=== PATIENT | male | born 1995 | race Caucasian/White ===

== ENCOUNTER 2018-09-08 12:06 | Emergency (ER) | payer MEDICAID, SELFPAY ==
[2018-09-08 12:11] VITALS: BP 135/77; PULSE 71; RESP 14; TEMP 36.7; O2SAT 100; BMI 33.3
[2018-09-08 12:41] LABS: Absolute Lymphocyte Count 1.55 X10^3/ul (0.83-4.51); Absolute Neutrophil Count 11.3 X10^3/uL (2.0-7.7); Basophil# 0.04 X10^3/uL; Basophil% 0.3 % (0-1); Eosinophil# 0.23 X10^3/uL; Eosinophils% 1.7 % (0-5); Hematocrit 46.5 % (40-54); Hemoglobin 16.2 g/dl (13.0-16.5); Lymphocyte # 1.55 X10^3/ul (4.0); Lymphocyte % 11.2 % (19-41); Mean Corp Hgb Conc 34.8 g/gl (32-36); Mean Corpuscular Volume 89.1 fL (80-94); Mean Platelet Vol. 9.9 fl (6.2-12.0); Monocyte% 5.1 % (0-10); Neutrophil # 11.27 X10^3/uL (2.7-7.7); Neutrophil % 81.4 % (47-70); POSITIVE COUNT NO; POSITIVE DIFFERENTIAL NO; POSITIVE MORPHOLOGY NO; Platelet Count 330 K/mm3 (150-450); RBC Distribution Width CV 12.1 % (11.6-14.6); RBC Distribution Width SD 39.4 fl (35.1-43.9); Red Blood Count 5.22 M/mm3 (4.6-6.2); White Blood Count 13.8 K/mm3 (4.4-11.0)
[2018-09-08 12:51] LABS: Anion Gap 9 (5-15); BUN 14 mg/dL (7-18); BUN/Creat Ratio 13.3 RATIO (10-20); Calcium,Total 8.8 mg/dL (8.5-10.1); Chloride 108 mmol/L (98-107); Creatinine, Serum 1.05 mg/dL (0.70-1.30); EST Glomerular Filtration Rate 91 mL/min (>60); Est Glom Filt Rate - Afr Amer 110 mL/min (>60); Estimated Creatinine Clearance 107.55 ml/min; Glucose 94 mg/dL (74-106); Potassium 3.8 mmol/L (3.5-5.1); Sodium Level 137 mmol/L (136-145)
[2018-09-08 12:59] LABS: Alcohol, Blood (Medical)-Serum < 3.0 mg/dL
--- NOTE | 2018-09-08 13:01 | CM.ED ---
SOCIAL WORK NOTE PATIENT PRESENTS WITH SUICIDAL IDEATION. DISCUSSED CASE WITH DR. GALINDO. CRISIS TO EVALUATE FOR INPATIENT PSYCH NEED. PER DR. GALINDO, PATIENT WITH SUICIDAL IDEATION AND PLAN TO HARM SELF. GILMER SNOWDEN, ENTRY ENGINEER, CHOIR LEADER.
[2018-09-08 13:21] VITALS: PULSE 76; RESP 18; O2SAT 99
--- NOTE | 2018-09-08 13:23 | NURSING ---
CALLED CRISIS, TALKED TO JOSEPHINE. SHE WILL LET RAYRAY KNOW ABOUT PATIENT
[2018-09-08 13:28] LABS: Amphetamine Urine VISTA POSITIVE (<1000 ng/mL); Barbiturate Urine VISTA NEGATIVE (< 200 ng/mL); Benzodiazepine Urine VISTA NEGATIVE (< 200 ng/mL); Cocaine Urine VISTA NEGATIVE (< 300 ng/mL); Ecstacy Urine VISTA NEGATIVE (< 500 ng/mL); Methadone Urine VISTA NEGATIVE (< 300 ng/mL); PCP Urine VISTA NEGATIVE (< 25 ng/mL); THC Urine VISTA POSITIVE (< 50 ng/mL); Vista UDS pH Range 5
--- NOTE | 2018-09-08 13:33 | NURSING ---
RAYRAY, CRISIS, HERE
--- NOTE | 2018-09-08 14:23 | ED.VISSUMM ---
- ER Visit Summary Date of Service: 09/08/18 Chief Complaint: Suicidal ideation, depression History of Present Illness: The patient is a 23 M who feels suicidal and feels depressed as well. He states that today he could not take it anymore. He thought about cutting himself or taking pills. He says that he stays at home and does not do anything which makes him depressed and feels like his friends are deserting him. He has cut himself before. He has never been hospitalized previously for any psychiatric issues. He takes no medications at home. He does see a counselor and states that he has asked for more help but the counselor has not given him any more help. Physical Examination: Vital signs reviewed. HEENT exam unremarkable. Heart is regular rate and rhythm without murmurs. Lungs are clear to auscultation. Abdomen is soft and nontender. Extremities reveal no edema. Skin exam normal. Neurologic exam normal. He has suicidal thoughts. He has a flat affect. Test Results: White blood cell count 13.8, chloride 108, bicarb 20. Alcohol normal. Tox screen with amphetamines and cannabinoids Emergency Department Course and Treatment: The patient was evaluated by crisis. His thoughts are vague and his plans are not very thought out. The patient states that he is able to keep himself safe at home. They were able to get him into intensive outpatient program on Tuesday. He will stay with his family throughout the weekend. He will follow-up on Tuesday Treatment Plan: [] Disposition: Discharge Impression: Suicidal ideation This note was generated with [employer] dictation software. It may contain incorrect words, spelling, and punctuation that were not noted in review of the chart prior to signing ED Disposition - Plan for ED Patient: Referrals: Care Physician,No Primary [Primary Care Provider] -
[2018-09-08 14:38] VITALS: PULSE 78; RESP 14; O2SAT 98
[2018-09-08 15:06] VITALS: RESP 16
--- NOTE | 2018-09-08 15:14 | ED.DEP ---
ED Disposition - Plan for ED Patient: Disposition: Home or Assisted Living Instructions: ED Depression Referrals: Care Physician,No Primary [Primary Care Provider] -
[2018-09-08 15:16] VITALS: BP 123/77; PULSE 67; RESP 16; O2SAT 99
== END 2018-09-08 15:21 | disposition home or self-care (01) ==
PROVIDERS: Emergency Provider Emergency Medicine
DX: R45.851 Suicidal ideations (principal); Z91.5 Personal history of self-harm; Z72.0 Tobacco use
CPT/HCPCS: 80048; 80307; 80320; 85025; 99283; G0480

== ENCOUNTER 2022-08-09 16:12 | Emergency (ER) | payer MEDICAID, SELFPAY ==
[2022-08-09 16:13] VITALS: BP 114/79; PULSE 74; RESP 26; TEMP 35.1; O2SAT 100; BMI 32.5
[2022-08-09 17:12] LABS: Absolute Lymphocyte Count 0.71 X10^3/uL (0.83-4.51); Absolute Neutrophil Count 16.1 X10^3/uL (2.0-7.7); Basophil# 0.04 X10^3/uL; Basophil% 0.2 % (0-1); Eosinophil# 0.03 X10^3/uL; Eosinophils% 0.2 % (0-5); Hematocrit 51.1 % (40-54); Lymphocyte # 0.71 X10^3/ul (0.83-4.51); Mean Corp Hgb Conc 35.2 g/dL (32-36); Mean Corpuscular Hgb 31.1 pg (27.0-32.0); Mean Corpuscular Volume 88.4 fL (80-94); Monocyte# 0.98 X10^3/uL; Monocyte% 5.5 % (0-10); NRBC Flagged by Analyzer 0 % (0-5); Neutrophil # 16.06 X10^3/uL (2.7-7.7); Neutrophil % 89.5 % (47-70); Platelet Count 313 K/mm3 (150-450); RBC Distribution Width CV 11.9 % (11.6-14.6); RBC Distribution Width SD 37.9 fl (35.1-43.9); Red Blood Count 5.78 M/mm3 (4.6-6.2); White Blood Count 17.9 K/mm3 (4.4-11.0)
[2022-08-09 17:31] LABS: Anion Gap 13 (5-15); BUN 17 mg/dL (7-18); BUN/Creat Ratio 11.8 RATIO (10-20); Calcium,Total 9.8 mg/dL (8.5-10.1); Chloride 105 mmol/L (98-107); Creatinine, Serum 1.44 mg/dL (0.70-1.30); EST Glomerular Filtration Rate 62 mL/min (>60); Est Glom Filt Rate - Afr Amer 74 mL/min (>60); Estimated Creatinine Clearance 75.69 ml/min; Glucose 111 mg/dL (74-106); Potassium 3.4 mmol/L (3.5-5.1); Sodium Level 137 mmol/L (136-145)
[2022-08-09 18:27] VITALS: BP 115/77; PULSE 63; RESP 18; O2SAT 99
--- NOTE | 2022-08-09 18:35 | ED.RN ---
pt has been accidentally taking full dose of carafate in tablet AND liquid form for approximately 1w.
--- NOTE | 2022-08-09 18:40 | ED.VIS.GI ---
HPI HPI - GI History of Present Illness Chief Complaint: Abd Pain Informant: patient and family Narrative Narrative: Patient here with father with pain across the mid abdomen to his back since noon today. He ate a burger for late breakfast. He states he was not left out. Vomiting diarrhea since too many to count. Denies bloody stools. Denies bloody emesis. Occasional alcohol however not significant. No history of pancreatitis. No abdominal surgeries. History of GERD on medications. Denies recent antibiotics. Subjective chills and sweats. No urinary symptoms. Father history of kidney stones. [facility] Medical History Acid reflux Uncontrolled hypertension Home Medications fluoxetine 10 mg capsule 30 mg PO DAILY 08/09/22 [History Last Taken Unknown] hyoscyamine sulfate 0.125 mg sublingual tablet (Levsin/SL) 0.125 mg PO TID PRN abdominal discomfort #10 tabs 08/09/22 [Rx Last Taken Unknown] omeprazole 20 mg capsule,delayed release 20 mg PO DAILY 08/09/22 [History Last Taken Unknown] ondansetron 4 mg disintegrating tablet 4 mg PO Q6H PRN nausea and vomiting #10 tabs 08/09/22 [Rx Last Taken Unknown] pantoprazole 20 mg tablet,delayed release 20 mg PO DAILY 08/09/22 [History Last Taken Unknown] sucralfate 1 gram tablet 2 g PO DAILY 08/09/22 [History Last Taken Unknown] Allergy/AdvReac Type Severity Reaction Status Date / Time Penicillins Allergy Rash Verified 08/09/22 16:13 Social History Smoking Status: Current every day smoker tobacco type: cigarettes ROS ROS ED Constitutional Constitutional ED: Reports chills and sweats; Denies fever(s) Eyes Eyes: Denies change in vision ENT ENT ED: Denies dysphagia or sore throat Cardiovascular Cardiovascular: Denies chest pain, leg edema, palpitations or racing heartbeat Respiratory/Chest Respiratory/Chest: Denies cough, dyspnea or dyspnea on exertion Gastrointestinal Gastrointestinal: Reports abdominal pain, diarrhea, nausea and vomiting Genitourinary Genitourinary ED: Denies dysuria, hematuria or urinary frequency Musculoskeletal Musculoskeletal: Denies back pain, extremity pain or neck pain Integumentary Denies rash or wounds Neurologic Neurologic: Denies headache(s), paresthesias or weakness EXAM Physical Exam Const Vital Signs: 08/09/22 16:13 08/09/22 18:27 08/09/22 19:36 Temperature 95.1 F L Temperature Source Temporal Pulse Rate 74 63 64 Respiratory Rate 26 H 18 Blood Pressure 114/79 115/77 107/60 Blood Pressure Mean 90 89 75 Pulse Ox 100 99 100 Oxygen Delivery Method Room Air Room Air Room Air 08/09/22 22:41 Temperature Temperature Source Pulse Rate 82 Respiratory Rate 18 Blood Pressure 121/72 H Blood Pressure Mean Pulse Ox 98 Oxygen Delivery Method Positive well nourished and well developed General Appearance ED: well developed and NAD HEENT Reports dry mucous membranes normocephalic and atraumatic Mouth ED: Yes dry mucous membranes Mouth: dry mucous membranes Eyes PERRL, EOMs intact bilaterally and conjunctivae normal General Eye ED: Yes normal appearance of both eyes Neck no lymphadenopathy and supple General: Negative for tenderness Chest Wall Chest: Negative for tenderness Resp normal respiratory effort and normal air movement Effort and Inspection: symmetric chest movement; Negative for respiratory distress Cardio regular rate, regular rhythm and no murmurs Peripheral Pulses: pulses 2+ throughout GI normal to inspection, nondistended, normoactive bowel sounds GI Narrative: Minimal mid abdominal tenderness there is no guarding or rebound negative Jerez's or McBurney's tenderness. Palpation: Negative for guarding or rebound tenderness present Back/Spine no CVA tenderness and no thoracic nor lumbar tenderness Extremity normal to inspection General Extremety ED: Negative for edema or tenderness General Extremity: Negative for edema Neuro oriented x3 and no sensory deficits noted Sensorium / Orientation: awake and alert Skin no rashes or lesions noted and no wounds MDM MDM MDM Narrative Medical decision making narrative: Patient acute vomiting and diarrhea reported abdominal pain. Nonsurgical abdomen on exam. Differential viral gastroenteritis, pancreatitis, colitis. He has no C. difficile risk factors. Clinical dehydration on exam. Also concern for electrolyte abnormalities with his symptoms. Laboratory studies obtained_white count of 17.9 hemoglobin 18. Creatinine 1.44 up from 1 previously. Potassium 3.4. Lipase and liver enzymes are normal. With leukocytosis and reported pain. Urine obtained noting 25 leukocytes and ketones. He denies urine symptoms or concerns for UTI. CT scan obtained abdomen pelvis was interpreted by myself and read by radiology with findings of enteritis. No obstructions or kidney stones. Patient clinically feeling much better on reexam is tolerating oral fluids. Patient on Levsin for cramping, continued soft abdomen on exam. Prescription for Levsin and Zofran sent to his pharmacy. Discussed his leukocytosis likely reactive to his acute vomiting. Return precautions. All questions answered. Lab Data Attestation: I reviewed the patient's lab results. Labs: Laboratory Results - last 24 hr 08/09/22 08/09/22 08/09/22 17:05 17:05 17:05 WBC 17.9 H RBC 5.78 Hgb 18.0 H* Hct 51.1 MCV 88.4 MCH 31.1 MCHC 35.2 RDW Std Deviation 37.9 RDW Coeff of Tal 11.9 Plt Count 313 MPV 10.0 Immature Gran % (Auto) 0.600 Neut % (Auto) 89.5 H Lymph % (Auto) 4.0 L Wells % (Auto) 5.5 Eos % (Auto) 0.2 Baso % (Auto) 0.2 Absolute Neuts (auto) 16.1 H Absolute Lymphs (auto) 0.71 L Nucleated RBC % 0 Sodium 137 Potassium 3.4 L Chloride 105 Carbon Dioxide 19.0 L Anion Gap 13 BUN 17 Creatinine 1.44 H Estim Creat Clear Calc 75.69 Est GFR (MDRD) Af Amer 74 Est GFR (MDRD) Non-Af 62 BUN/Creatinine Ratio 11.8 Glucose 111 H Calcium 9.8 Total Bilirubin 1.10 H Direct Bilirubin 0.21 AST 24 ALT 34 Alkaline Phosphatase 90 Total Protein 8.5 H Albumin 4.6 Globulin 3.9 Lipase 69 L Urine Color Urine Clarity Urine pH Ur Specific [place] Urine Protein Urine Glucose (UA) Urine Ketones Urine Occult Blood Urine Nitrite Urine Bilirubin Urine Urobilinogen Ur Leukocyte Esterase Urine RBC Urine WBC Ur Squamous Epith Cells Urine Bacteria Urine Mucus 08/09/22 19:28 WBC RBC Hgb Hct MCV MCH MCHC RDW Std Deviation RDW Coeff of Tal Plt Count MPV Immature Gran % (Auto) Neut % (Auto) Lymph % (Auto) Wells % (Auto) Eos % (Auto) Baso % (Auto) Absolute Neuts (auto) Absolute Lymphs (auto) Nucleated RBC % Sodium Potassium Chloride Carbon Dioxide Anion Gap BUN Creatinine Estim Creat Clear Calc Est GFR (MDRD) Af Amer Est GFR (MDRD) Non-Af BUN/Creatinine Ratio Glucose Calcium Total Bilirubin Direct Bilirubin AST ALT Alkaline Phosphatase Total Protein Albumin Globulin Lipase Urine Color Yellow Urine Clarity Clear Urine pH 7.0 Ur Specific [place] 1.005 Urine Protein 30 H Urine Glucose (UA) Normal Urine Ketones 150 A* Urine Occult Blood Negative Urine Nitrite Negative Urine Bilirubin 1 H Urine Urobilinogen Normal Ur Leukocyte Esterase 25 H Urine RBC 0 SEEN Urine WBC 0 SEEN Ur Squamous Epith Cells 0 SEEN Urine Bacteria 0 SEEN Urine Mucus 2+ Radiography Diagnostic Testing: Clinical Impression(s) from Imaging Studies Abdomen/Pelvis CT 08/09/22 20:15 IMPRESSION: Nonspecific bowel changes consistent with enteritis in diarrheal illness. No nephrolithiasis or evidence of obstructive uropathy. Electronically Signed: David Del Cid MD at 21:23 EST Reading Location ID and State: [address] [place] [address] Tel , Service support , Discharge Plan Triage Chief Complaint: Abd Pain ED Provider: Hossein Wright Dx/Rx/DC Orders Clinical Impression: Nausea vomiting and diarrhea, Abdominal pain, Flank pain, Acute renal insufficiency Instructions: Abdominal Pain, ED Renal Insufficiency, ED Vomiting and Diarrhea ... Prescriptions: New hyoscyamine sulfate [Levsin/SL] 0.125 mg tablet, sublingual 0.125 mg PO TID PRN (Reason: abdominal discomfort) Qty: 10 0RF ondansetron 4 mg tablet,disintegrating 4 mg PO Q6H PRN (Reason: nausea and vomiting) Qty: 10 0RF No Action sucralfate 1 gram Tablet 2 g PO DAILY pantoprazole 20 mg tablet,delayed release (DR/EC) 20 mg PO DAILY fluoxetine 10 mg capsule 30 mg PO DAILY omeprazole 20 mg capsule,delayed release(DR/EC) 20 mg PO DAILY Primary Care Provider: Opal Gomez NP Referrals: Opal Gomez NP, [facility] [Primary Care Provider] - 3-5 Days if not improving Activity Restrictions/Additional Instructions: Labs with creatinine of 1.44. CT scan abdomen pelvis noted enteritis findings. Consistent with your vomiting and diarrhea. Continue oral fluids at home. Take medications as prescribed as needed. Follow-up with your doctor. Disposition Disposition: Home, Self Care Discharge Date/Time: 08/09/22 22:46
[2022-08-09] MEDS: Morphine 4 MG/ML Syringe IV (18:50)
[2022-08-09] MEDS: Ondansetron 4 MG/2 ML Vial IV (18:50)
[2022-08-09 19:23] LABS: AST(SGOT) 24 U/L (15-37); Alanine Aminotransfer ALT/SGPT 34 U/L (16-61); Albumin, Serum 4.6 g/dL (3.2-5.0); Alkaline Phosphatase 90 U/L (45-117); Bilirubin, Direct 0.21 mg/dL (0.00-0.30); Globulin 3.9 g/dL (2.2-4.2); Lipase 69 U/L (73-393); Protein, Total 8.5 g/dL (6.4-8.2)
[2022-08-09 19:32] LABS: Bacteria 0 SEEN /hpf (None Seen); Red Blood Cells-Urine 0 SEEN /hpf (0-5); Squamous Epithelial Cells - UA 0 SEEN /hpf (0-5); White Blood Cells 0 SEEN /hpf (0-5)
[2022-08-09 19:36] VITALS: BP 107/60; PULSE 64; O2SAT 100
[2022-08-09 19:41] LABS: Color, Urine Yellow (Yellow); Glucose, Dipstick Normal (Normal); Leukocyte Esterase-Dipstick 25 /ul (Negative); Nitrite-Dipstick Negative (Negative); Occult Blood-Urine Negative /ul (Negative); Protein-Dipstick 30 mg/dl (Negative); Specific Gravity, Urine 1.005 (1.002-1.030); Urine Clarity Clear (Clear); Urine Urobilinogen Normal (Normal)
[2022-08-09 19:56] LABS: Urine Bilirubin Dipstick 1 mg/dL (Negative)
[2022-08-09 19:58] LABS: Ketone-Dipstick 150 mg/dl (Negative)
[2022-08-09 20:04] LABS: Mucous, Urine 2+ /hpf (<or=2+)
--- NOTE | 2022-08-09 20:15 | CT_ITS ---
INDICATION: flank pain EXAMINATION: CT ABDOMEN AND PELVIS WITHOUT CONTRAST - CT Abdomen And Pelvis W/O Contrast Injection TECHNIQUE: Helically acquired images were obtained of the abdomen and pelvis without oral or IV contrast. A radiation dose optimization technique was used for this scan. IV Contrast dosage and agent: None. Oral contrast: None. COMPARISON: None. FINDINGS: LOWER CHEST: Lung bases are clear. No cardiomegaly or pericardial effusion. LIVER: Homogeneous. No focal mass. GALLBLADDER AND BILIARY TREE: No calcified gallstones. No gallbladder distension or wall edema. No intra- or extrahepatic biliary ductal dilation. PANCREAS: No focal cystic or solid mass. SPLEEN: Normal size without focal cystic or solid mass. ADRENAL GLANDS: No nodules. KIDNEYS AND URETERS: No nephrolithiasis or hydronephrosis bilaterally. PERITONEUM: No ascites or free air. BOWEL: Normal appendix. No stomach or bowel distension. Increased large and small bowel fluid contents with fluid levels throughout the colon and in the rectum. LYMPH NODES: No enlarged mesenteric or retroperitoneal lymph nodes. VESSELS: Aorta is non-dilated. URINARY BLADDER: Unremarkable. REPRODUCTIVE ORGANS: No pelvic masses. ABDOMINAL WALL: Fat-containing umbilical hernia. BONES: No acute or aggressive abnormality. CT/Abdomen/Pelvis without Cont IMPRESSION: Nonspecific bowel changes consistent with enteritis in diarrheal illness. No nephrolithiasis or evidence of obstructive uropathy. Electronically Signed: David Del Cid MD at 21:23 [facility] ,
[2022-08-09] MEDS: Hyoscyamine Sulfate 0.125 MG Tablet SL (22:37)
[2022-08-09 22:41] VITALS: BP 121/72; PULSE 82; RESP 18; O2SAT 98
[2022-08-10 15:25] LABS: Pathologist Review Reviewed
== END 2022-08-09 22:46 | disposition home or self-care (01) ==
PROVIDERS: Emergency Provider Emergency Medicine; PCP Nurse Practitioner Family; Visit Provider Emergency Medicine
DX: R11.2 Nausea with vomiting, unspecified (principal); E86.0 Dehydration; N28.9 Disorder of kidney and ureter, unspecified; I10 Essential (primary) hypertension; F17.210 Nicotine dependence, cigarettes, uncomplicated; K21.9 Gastro-esophageal reflux disease without esophagitis; Z79.899 Other long term (current) drug therapy; R19.7 Diarrhea, unspecified; R10.9 Unspecified abdominal pain
CPT/HCPCS: 74176; 80048; 80076; 81001; 83690; 85025; 96361; 96374; 96375; 99285; J7030; A4216; J2405

== ENCOUNTER 2025-05-27 15:12 | Emergency (ER) | payer MEDICAID, SELFPAY ==
[2025-05-27 15:12] VITALS: BP 157/79; PULSE 66; RESP 18; TEMP 37.1; O2SAT 100; BMI 30.3
[2025-05-27 19:12] VITALS: BP 134/83; PULSE 56; O2SAT 100
--- OUTSIDE RECORDS SUMMARY | 2025-05-27 19:26 | XMS RPT_ITS | CCD ---
Author Organization [facility] Care Team Providers Care Teacher Vocational Training Name Role Phone Hossein Wright Attending Unavailable Jacqueline Gomez Primary Care Unavailable JACQUELINE GOMEZ Admitting Unavailable JACQUELINE GOMEZ Attending Unavailable JACQUELINE GOMEZ Primary Care Unavailable JACQUELINE GOMEZ Consulting Unavailable PROVIDER, UNKNOWN Consulting Unavailable Allergies Allergy Classification Reported Allergen(s) Allergy Type Date of Onset Reaction(s) Facility (1 source) Penicillins Allergy to substance 08-09-2022 Rash [facility] Work Phone: (1 source) Penicillins Drug allergy (disorder) 08-09-2022 [facility] Repository Medications Current Medications Medication Drug Class(es) Dates Sig (Normalized) Sig (Original) FLUoxetine 10 mg oral capsule (1 source) Serotonin Reuptake Inhibitor Start: 08-09-2022 take 30 mg by mouth once daily Fluoxetine Active 30 MG PO DAILY August 09, 2022 12:00am hyoscyamine sulfate 0.125 mg sublingual tablet (1 source) Start: 08-09-2022 take 1 tablet by mouth three times daily Hyoscyamine Sulfate (Levsin/Sl) 0.125 mg tablet, sublingual Active 0.125 MG PO THREE TIMES A DAY August 09, 2022 12:00am omeprazole 20 mg delayed release oral capsule (1 source) Proton Pump Inhibitor Start: 08-09-2022 take 20 mg by mouth once daily Omeprazole Active 20 MG PO DAILY August 09, 2022 12:00am ondansetron 4 mg disintegrating oral tablet (1 source) Serotonin-3 Receptor Antagonist Start: 08-09-2022 take 4 mg by mouth every six hours Ondansetron Active 4 MG PO EVERY 6 HOURS August 09, 2022 12:00am pantoprazole 20 mg delayed release oral tablet (1 source) Proton Pump Inhibitor Start: 08-09-2022 take 20 mg by mouth once daily Pantoprazole Active 20 MG PO DAILY August 09, 2022 12:00am sucralfate 1000 mg oral tablet (1 source) Aluminum Complex Start: 08-09-2022 take 2 g by mouth once daily Sucralfate Active 2 GM PO DAILY August 09, 2022 12:00am Problems Problem Classification Problem Date Documented Da te Episodic/Chronic Abdominal pain (2 sources) Flank pain; Translations: [Unspecified abdominal pain] Episodic Essential hypertension (1 source) Essential (primary) hypertension; Translations: [Essential (primary) hypertension] Onset: 07-19-2024 Chronic Nausea and vomiting (1 source) Nausea, vomiting and diarrhea; Translations: [Nausea with vomiting, unspecified] Episodic Other diseases of kidney and ureters (1 source) Acute renal insufficiency; Translations: [Disorder of kidney and ureter, unspecified] Episodic Other nutritional; endocrine; and metabolic disorders (1 source) Obesity, unspecified; Translations: [Obesity, unspecified] Onset: 07-19-2024 Chronic Other screening for suspected conditions (not mental disorders or infectious disease) (1 source) Encounter for screening for lipoid disorders; Translations: [Encounter for screening for lipoid disorders] Onset: 07-19-2024 Episodic Results Test Name Value Interpretation Reference Range Facility CBC W/Diff, Automatedon 08-01 PATH REV Reviewed Normal [facility] Comment on above: Result Comment: Neut rophilic leukocytosis. Polycythemia Clinical correlation necessary. Lico Farrar M.D. 08/10/22 AMENDED REPORT 08/10/22 1525 PATH REV previously reported as: November Performed By: #### L 500.2500, L100.0100 #### [facility] [address] [place], [address] Abdomen/Pelvis without Conto n 08-09-2022 Abdomen/Pelvis without Cont [facility] [address] [place] [address] Abdomen/Pelvis without Cont MR#: [id number] Acct: [id number] Name: NATALIA BETANCOURT Rep #: [id number] : 1995 M 27 From: David Del Cid MD PCP: CHANTALE Baker Status: REG ER Study: Abdomen/Pelvis without Cont Date of Exam: 04/23 Exam# [id number] Ordering Dr: Hossein Wright DO INDICATION: flank pain EXAMINATION: CT ABDOMEN AND PELVIS WITHOUT CONTRAST - CT Abdomen And Pelvis W/O Contrast Injection TECHNIQUE: Helically acquired images were obtained of the abdomen and pelvis without oral or IV contrast. A radiation dose optimization technique was used for this scan. IV Contrast dosage and agent: None. Oral contrast: None. COMPARISON: None. __ FINDINGS: LOWER CHEST: Lung bases are clear. No cardiomegaly or pericardial effusion. LIVER: Homogeneous. No focal mass. GALLBLADDER AND BILIARY TREE: No calcified gallstones. No gallbladder distension or wall edema. No intra- or extrahepatic biliary ductal dilation. PANCREAS: No focal cystic or solid mass. SPLEEN: Normal size without focal cystic or solid mass. ADRENAL GLANDS: No nodules. KIDNEYS AND URETERS: No nephrolithiasis or hydronephrosis bilaterally. PERITONEUM: No ascites or free air. BOWEL: Normal appendix. No stomach or bowel distension. Increased large and small bowel fluid contents with fluid levels throughout the colon and in the rectum. LYMPH NODES: No enlarged mesenteric or retroperitoneal lymph nodes. VESSELS: Aorta is non-dilated. URINARY BLADDER: Unremarkable. REPRODUCTIVE ORGANS: No pelvic masses. ABDOMINAL WALL: Fat-containing umbilical hernia. BONES: No acute or aggressive abnormality. CT/Abdomen/Pelvis without Cont IMPRESSION: Nonspecific bowel changes consistent with enteritis in diarrheal illness. No nephrolithiasis or evidence of obstructive uropathy. Electronically Signed: David Del Cid MD at 21:23 [facility] , CC: CHANTALE Gomez; Dr. Hossein Wright DO Fire Suppression Captain: Signed Normal [facility] Absolute lymphocyte counton 08-09-2022 Lymphocytes Auto (Unsp spec) [#/Vol] 0.71 10*3/uL 0.83-4.51 [facility] Work Phone: Basic Metabolic Profile (BMP )on 08-09-2022 BUN/CRE 11.8 RATIO Normal 10-20 [facility] Comment on above: Performed By: #### L 500.2500, L100.0100 #### [facility] [address] [place], [address] CA,Total 9.8 mg/dL Normal 8.5-10.1 [facility] Comment on above: Performed By: #### L 500.2500, L100.0100 #### [facility] [address] [place], [address] Chloride [Moles/Vol] 105 mmol/L Normal 98-107 [facility] Comment on above: Performed By: #### L 500.2500, L100.0100 #### [facility] [address] [place], [address] CO2 [Moles/Vol] 19.0 mmol/L Low 21.0-32.0 [facility] Comment on above: Performed By: #### L 500.2500, L100.0100 #### [facility] [address] [place], [address] Creatinine [Mass/Vol] 1.44 mg/dL High 0.70-1.30 [facility] Comment on above: Result Comment: The validity of the calculated GFR GFRAA in patients over 70 years has not been determined. Clinical correlation is essential. Performed By: #### L 500.2500, L100.0100 #### [facility] [address] [place], [address] ECRCL 75.69 ml/min Normal [facility] Comment on above: Performed By: #### L 500.2500, L100.0100 #### [facility] [address] [place], [address] EST GFR - AA 74 mL/min Normal >60 [facility] Comment on above: Result Comment: Afri can Citizen Of [place] GFR Calc Performed By: #### L 500.2500, L100.0100 #### [facility] [address] [place], [address] GAP 13 Normal 5-15 [facility] Comment on above: Performed By: #### L 500.2500, L100.0100 #### [facility] [address] [place], [address] GFR/1.73 sq M.predicted among non-blacks MDRD (S/P/Bld) [Vol rate/Area] 62 mL/min/{1.73_m2} Normal >60 [facility] Comment on above: Result Comment: Non- GFR Calc Performed By: #### L 500.2500, L100.0100 #### [facility] [address] [place], [address] Glucose [Mass/Vol] 111 mg/dL High 74-106 [facility] Comment on above: Result Comment: Fast ing Glucose result from 100 to 125 mg/dL suggests IMPAIRED HOMEOSTASIS per A.D.A. criteria. Performed By: #### L 500.2500, L100.0100 #### [facility] [address] [place], [address] Potassium [Moles/Vol] 3.4 mmol/L Low 3.5-5.1 [facility] Comment on above: Performed By: #### L 500.2500, L100.0100 #### [facility] [address] [place], [address] Sodium [Moles/Vol] 137 mmol/L Normal 136-145 [facility] Comment on above: Performed By: #### L 500.2500, L100.0100 #### [facility] [address] [place], [address] Urea nitrogen [Mass/Vol] 17 mg/dL Normal 7-18 [facility] Comment on above: Performed By: #### L 500.2500, L100.0100 #### [facility] [address] [place], [address] Basophil percentageon 2022 Basophil percentage 0 SEEN /hpf 0-5 [facility] Work Phone: Basophils/100 WBC (Bld) 0.2 % 0-1 [facility] Work Phone: Bilirubin [Mass/Vol] 1.10 mg/dL 0.20-1.00 [facility] Work Phone: Comment on above: For patients on eltr ombopag therapy, use of Dimension [place] TBIL is not recommended. Chloride [Moles/Vol] 105 mmol/L 98-107 [facility] Work Phone: Eosinophils/100 WBC (Bld) 0.2 % 0-5 [facility] Work Phone: Glucose [Mass/Vol] 111 mg/dL 74-106 [facility] Work Phone: Comment on above: Fasting Glucose resu lt from 100 to 125 mg/dL suggests IMPAIRED HOMEOSTASIS per A.D.A. criteria. Neutrophils (Bld) [#/Vol] 16.1 10*3/uL 2.0-7.7 [facility] Work Phone: Neutrophils/100 WBC (Bld) 89.5 % 47-70 [facility] Work Phone: Potassium [Moles/Vol] 3.4 mmol/L 3.5-5.1 [facility] Work Phone: Protein [Mass/Vol] 8.5 g/dL 6.4-8.2 [facility] Work Phone: Sodium [Moles/Vol] 137 mmol/L 136-145 [facility] Work Phone: WBC (Bld) [#/Vol] 17.9 10*3/uL 4.4-11.0 [facility] Work Phone: Bilirubin Test strip Ql (U)o n 08-09-2022 Bilirubin Ql (U) 1 mg/dL Negative [facility] Work Phone: Comment on above: COLOR OF URINE MAY A FFECT DIPSTICK RESULTS. Blood erythrocytes count (nu mber/volume)on 08-09-2022 RBC (Bld) [#/Vol] 5.78 10*6/uL 4.6-6.2 [facility] Work Phone: Blood hemoglobin measurement (mass/volume)on 08-09-2022 Hemoglobin (Bld) [Mass/Vol] 18.0 g/dL 13.0-16.5 [facility] Work Phone: Comment on above: CRITICAL VALUE VERIF IED. CALLED TO MEAGHAN ALBERTO08/09/22 1714 Jennifer Morales.RESULTS READ BACK BY SAME . Blood lymphocytes/100 leukoc yteson 08-09-2022 Lymphocytes/100 WBC (Bld) 4.0 % 19-41 [facility] Work Phone: Blood monocytes/100 leukocyt eson 08-09-2022 Monocytes/100 WBC (Bld) 5.5 % 0-10 [facility] Work Phone: Blood platelet mean volumeon 08-09-2022 Platelet mean volume (Bld) [Entitic vol] 10.0 fL 6.2-12.0 [facility] Work Phone: Determination of erythrocyte mean corpuscular volume (MCV)on 08-09-2022 MCV (RBC) [Entitic vol] 88.4 fL 80-94 [facility] Work Phone: Direct bilirubinon Bilirubin.direct [Mass/Vol] 0.21 mg/dL 0.00-0.30 [facility] Work Phone: Emergency Department Summary on 08-09-2022 Emergency Department Summary [facility] Medical Records Department [address] [place] [address] Emergency Department Summary 08/09/22 MR#: [id number] Acct: [id number] Name: NATALIA BETANCOURT Rep #: [id number] : 1995 27 From: Hossein Griffin PCP: CHANTALE Baker Status:DEP ER Location: ED HPI HPI - GI History of Present Illness Chief Complaint: Abd Pain Informant: patient and family Narrative Narrative: Patient here with father with pain across the mid abdomen to his back since noon today. He ate a burger for late breakfast. He states he was not left out. Vomiting diarrhea since too many to count. Denies bloody stools. Denies bloody emesis. Occasional alcohol however not significant. No history of pancreatitis. No abdominal surgeries. History of GERD on medications. Denies recent antibiotics. Subjective chills and sweats. No urinary symptoms. Father history of kidney stones. [facility] Acid reflux Uncontrolled hypertension Home Medications fluoxetine 10 mg capsule 30 mg PO DAILY 08/09/22 [History Last Taken Unknown] hyoscyamine sulfate 0.125 mg sublingual tablet (Levsin/SL) 0.125 mg PO TID PRN abdominal discomfort #10 tabs 08/09/22 [Rx Last Taken Unknown] omeprazole 20 mg capsule,delayed release 20 mg PO DAILY 08/09/22 [History Last Taken Unknown] ondansetron 4 mg disintegrating tablet 4 mg PO Q6H PRN nausea and vomiting #10 tabs 08/09/22 [Rx Last Taken Unknown] pantoprazole 20 mg tablet,delayed release 20 mg PO DAILY 08/09/22 [History Last Taken Unknown] sucralfate 1 gram tablet 2 g PO DAILY 08/09/22 [History Last Taken Unknown] Allergy/AdvReac Type Severity Reaction Status Date / Time Penicillins Allergy Rash Verified 08/09/22 16:13 Social History Smoking Status: Current every day smoker tobacco type: cigarettes ROS ROS ED Constitutional Constitutional ED: Reports chills and sweats; Denies fever(s) Eyes Eyes: Denies change in vision ENT ENT ED: Denies dysphagia or sore throat Cardiovascular Cardiovascular: Denies chest pain, leg edema, palpitations or racing heartbeat Respiratory/Chest Respiratory/Chest: Denies cough, dyspnea or dyspnea on exertion Gastrointestinal Gastrointestinal: Reports abdominal pain, diarrhea, nausea and vomiting Genitourinary Genitourinary ED: Denies dysuria, hematuria or urinary frequency Musculoskeletal Musculoskeletal: Denies back pain, extremity pain or neck pain Integumentary Denies rash or wounds Neurologic Neurologic: Denies headache(s), paresthesias or weakness EXAM Physical Exam Const Vital Signs: 08/09/22 16:13 08/09/22 18:27 08/09/22 19:36 Temperature 95.1 F L Temperature Source Temporal Pulse Rate 74 63 64 Respiratory Rate 26 H 18 Blood Pressure 114/79 115/77 107/60 Blood Pressure Mean 90 89 75 Pulse Ox 100 99 100 Oxygen Delivery Method Room Air Room Air Room Air 08/09/22 22:41 Temperature Temperature Source Pulse Rate 82 Respiratory Rate 18 Blood Pressure 121/72 H Blood Pressure Mean Pulse Ox 98 Oxygen Delivery Method Positive well nourished and well developed General Appearance ED: well developed and NAD HEENT Reports dry mucous membranes normocephalic and atraumatic Mouth ED: Yes dry mucous membranes Mouth: dry mucous membranes Eyes PERRL, EOMs intact bilaterally and conjunctivae normal General Eye ED: Yes normal appearance of both eyes Neck no lymphadenopathy and supple General: Negative for tenderness Chest Wall Chest: Negative for tenderness Resp normal respiratory effort and normal air movement Effort and Inspection: symmetric chest movement; Negative for respiratory distress Cardio regular rate, regular rhythm and no murmurs Peripheral Pulses: pulses 2+ throughout GI normal to inspection, nondistended, normoactive bowel sounds GI Narrative: Minimal mid abdominal tenderness there is no guarding or rebound negative Jerez's or McBurney's tenderness. Palpation: Negative for guarding or rebound tenderness present Back/Spine no CVA tenderness and no thoracic nor lumbar tenderness Extremity normal to inspection General Extremety ED: Negative for edema or tenderness General Extremity: Negative for edema Neuro oriented x3 and no sensory deficits noted Sensorium / Orientation: awake and alert Skin no rashes or lesions noted and no wounds MDM MDM MDM Narrative Medical decision making narrative: Patient acute vomiting and diarrhea reported abdominal pain. Nonsurgical abdomen on exam. Differential viral gastroenteritis, pancreatitis, colitis. He has no C. difficile risk factors. Clinical dehydration on exam. Also concern for electrolyte abnormalities with his symptoms. Laboratory studies ob (more content not included)... Normal [facility] Hematocrit Auto (Bld) [Volum e fraction]on 08-09-2022 Hematocrit (Bld) [Volume fraction] 51.1 % 40-54 [facility] Work Phone: Ketones Test strip Ql (U)on 08-09-2022 Ketones Ql (U) 150 mg/dl Negative [facility] Work Phone: Comment on above: CRITICAL VALUE *HCRI TICAL VALUE VERIFIED. CALLED TO MEGAN ORTIZFER08/09/221955 Jennifer Morales.RESULTS READ BACK BY SAME . Laboratory - Chemistry and C hemistry - challengeon 08-09-2022 ALP [Catalytic activity/Vol] 90 U/L 45-117 [facility] Work Phone: ALT [Catalytic activity/Vol] 34 U/L 16-61 [facility] Work Phone: CO2 [Moles/Vol] 19.0 mmol/L 21.0-32.0 [facility] Work Phone: Globulin (S) [Mass/Vol] 3.9 g/dL 2.2-4.2 [facility] Work Phone: Lipase [Catalytic activity/Vol] 69 U/L 73-393 [facility] Work Phone: Urea nitrogen/Creatinine [Mass ratio] 11.8 mg/mg 10-20 [facility] Work Phone: Laboratory - Hematology and Cell countson 08-09-2022 Erythrocyte distribution width (RBC) [Entitic vol] 37.9 fL 35.1-43.9 [facility] Work Phone: Erythrocyte distribution width (RBC) [Ratio] 11.9 % 11.6-14.6 [facility] Work Phone: Immature granulocytes/100 WBC (Bld) 0.600 % 0.0-0.9 [facility] Work Phone: Comment on above: IG% - Immature Granu locytes (promyelocytes, myelocytes and metamyelocytes) > 1% indicates that a LEFT SHIFT is Present. MCH (RBC) [Entitic mass] 31.1 pg 27.0-32.0 [facility] Work Phone: Nucleated RBC/100 WBC (Bld) [Ratio] 0 % 0-5 [facility] Work Phone: Lipaseon 08-09-2022 Lipase [Catalytic activity/Vol] 69 U/L Low 73-393 [facility] Comment on above: Performed By: #### L 500.3400, L501.2450 #### [facility] [address] [place], [address] Liver Profileon 08-09-2022 Albumin [Mass/Vol] 4.6 g/dL Normal 3.2-5.0 [facility] Comment on above: Performed By: #### L 500.3400, L501.2450 #### [facility] [address] [place], [address] ALK P 90 U/L Normal 45-117 [facility] Comment on above: Performed By: #### L 500.3400, L501.2450 #### [facility] [address] [place], [address] ALT [Catalytic activity/Vol] 34 U/L Normal 16-61 [facility] Comment on above: Performed By: #### L 500.3400, L501.2450 #### [facility] [address] [place], [address] AST [Catalytic activity/Vol] 24 U/L Normal 15-37 [facility] Comment on above: Performed By: #### L 500.3400, L501.2450 #### [facility] [address] [place], [address] Bilirubin [Mass/Vol] 1.10 mg/dL High 0.20-1.00 [facility] Comment on above: Result Comment: For patients on eltrombopag therapy, use of Dimension [place] TBIL is not recommended. Performed By: #### L 500.3400, L501.2450 #### [facility] [address] [place], [address] Bilirubin.direct [Mass/Vol] 0.21 mg/dL Normal 0.00-0.30 [facility] Comment on above: Performed By: #### L 500.3400, L501.2450 #### [facility] [address] [place], [address] Globulin (S) [Mass/Vol] 3.9 g/dL Normal 2.2-4.2 [facility] Comment on above: Performed By: #### L 500.3400, L501.2450 #### [facility] [address] [place], [address] T PROT 8.5 g/dL High 6.4-8.2 [facility] Comment on above: Performed By: #### L 500.3400, L501.2450 #### [facility] [address] [place], [address] MCHC Auto (RBC) [Mass/Vol]on 08-09-2022 MCHC (RBC) [Mass/Vol] 35.2 g/dL 32-36 [facility] Work Phone: Mucus LM Ql (Urine sed)on Mucus Ql (Urine sed) 2+ /hpf [facility] Work Phone: Nitrite Test strip Ql (U)on 08-09-2022 Nitrite Ql (U) Negative Negative [facility] Work Phone: No Panel Informationon 08-09 Estimated Creatinine Clearance Calc 75.69 ml/min [facility] Work Phone: Estimated GFR (MDRD) Amer 74 mL/min >60 [facility] Work Phone: Comment on above: GFR Calc Estimated GFR (MDRD) Non-Af Amer 62 mL/min >60 [facility] Work Phone: Comment on above: Non- GFR Calc Platelets bldon 08-09-2022 Platelets (Bld) [#/Vol] 313 10*3/uL 150-450 [facility] Work Phone: Protein Test strip Ql (U)on 08-09-2022 Protein Ql (U) 30 mg/dl Negative [facility] Work Phone: Serum or plasma albumin rito urement (mass/volume)on 08-09-2022 Albumin [Mass/Vol] 4.6 g/dL 3.2-5.0 [facility] Work Phone: Serum or plasma calcium rito urement (mass/volume)on 08-09-2022 Calcium [Mass/Vol] 9.8 mg/dL 8.5-10.1 [facility] Work Phone: Serum or plasma creatinine m easurement (mass/volume)on 08-09-2022 Creatinine [Mass/Vol] 1.44 mg/dL 0.70-1.30 [facility] Work Phone: Comment on above: The validity of the calculated GFR & GFRAA in patients over 70 years has not been determined. Clinical correlation is essential. Serum or plasma urea nitroge n measurement (mass/volume)on 08-09-2022 Urea nitrogen [Mass/Vol] 17 mg/dL 7-18 [facility] Work Phone: Squamous epithelial cells de tection in urine sediment by light microscopyon 08-09-2022 Epithelial cells.squamous LM Ql (Urine sed) 0 SEEN /hpf 0-5 [facility] Work Phone: Thin prep Papanicolaou smear with manual screeningon 08-09-2022 Thin prep Papanicolaou smear with manual screening 24 U/L 15-37 [facility] Work Phone: Thin prep Papanicolaou smear with manual screening 13 5-15 [facility] Work Phone: Urinalysis, Completeon 08-09 Mucus Ql (Urine sed) 2+ /hpf Normal [facility] Comment on above: Order Comment: CLEAN CATCH Performed By: #### L 400.0001 #### [facility] [address] [place], [address] BACTERIA 0 SEEN Normal None Seen [facility] Comment on above: Order Comment: CLEAN CATCH Performed By: #### L 400.0001 #### [facility] [address] [place], [address] EPI,SQUAMOUS 0 SEEN Normal 0-5 [facility] Comment on above: Order Comment: CLEAN CATCH Performed By: #### L 400.0001 #### [facility] [address] [place], [address] RBC 0 SEEN Normal 0-5 [facility] Comment on above: Order Comment: CLEAN CATCH Performed By: #### L 400.0001 #### [facility] [address] [place], [address] WBC 0 SEEN Normal 0-5 [facility] Comment on above: Order Comment: CLEAN CATCH Performed By: #### L 400.0001 #### [facility] [address] [place], [address] BACTERIA Normal None Seen [facility] Comment on above: Order Comment: JESSICA PITTSOR TO SPECIFY Result Comment: PLEA SE SEE U44 Performed By: #### L 400.0001 #### [facility] [address] [place], [address] BILIRUBIN URINE Normal Negative [facility] Comment on above: Order Comment: JESSICA PITTSOR TO SPECIFY Result Comment: PLEA SE SEE U44 Performed By: #### L 400.0001 #### [facility] [address] [place], [address] Clarity (U) Normal Clear [facility] Comment on above: Order Comment: JESSICA PITTSOR TO SPECIFY Result Comment: PLEA SE SEE U44 Performed By: #### L 400.0001 #### [facility] [address] [place], [address] Color (U) Normal Yellow [facility] Comment on above: Order Comment: COLLE CTOR TO SPECIFY Result Comment: PLEA SE SEE U44 Performed By: #### L 400.0001 #### [facility] [address] [place], [address] EPI,SQUAMOUS Normal 0-5 [facility] Comment on above: Order Comment: COLLE CTOR TO SPECIFY Result Comment: PLEA SE SEE U44 Performed By: #### L 400.0001 #### [facility] [address] [place], [address] GLUCOSE, UR Normal Normal [facility] Comment on above: Order Comment: COLLE CTOR TO SPECIFY Result Comment: PLEA SE SEE U44 Performed By: #### L 400.0001 #### [facility] [address] [place], [address] KETONE UR Normal Negative [facility] Comment on above: Order Comment: COLLE CTOR TO SPECIFY Result Comment: PLEA SE SEE U44 Performed By: #### L 400.0001 #### [facility] [address] [place], [address] LEUK ESTERASE Normal Negative [facility] Comment on above: Order Comment: COLLE CTOR TO SPECIFY Result Comment: PLEA SE SEE U44 Performed By: #### L 400.0001 #### [facility] [address] [place], [address] Mucus Ql (Urine sed) Normal [facility] Comment on above: Order Comment: COLLE CTOR TO SPECIFY Result Comment: PLEA SE SEE U44 Performed By: #### L 400.0001 #### [facility] [address] [place], [address] Nitrite Ql (U) Normal Negative [facility] Comment on above: Order Comment: COLLE CTOR TO SPECIFY Result Comment: PLEA SE SEE U44 Performed By: #### L 400.0001 #### [facility] [facility] [address] [place], [address] OCCULT BLOOD-UR Normal Negative [facility] Comment on above: Order Comment: COLLE CTOR TO SPECIFY Result Comment: PLEA SE SEE U44 Performed By: #### L [id number] #### [facility] [address] [place], [address] pH UR Normal 5.0 - 8.0 [facility] Comment on above: Order Comment: COLLE CTOR TO SPECIFY Result Comment: PLEA SE SEE U44 Performed By: #### L [id number] #### [facility] [address] [place], [address] PROT DIPSTX Normal Negative [facility] Comment on above: Order Comment: COLLE CTOR TO SPECIFY Result Comment: PLEA SE SEE U44 Performed By: #### L [id number] #### [facility] [address] [place], [address] RBC Normal 0-5 [facility] Comment on above: Order Comment: COLLE CTOR TO SPECIFY Result Comment: PLEA SE SEE U44 Performed By: #### L [id number] #### [facility] [address] [place], [address] SP.GR. DIPSTX Normal 1.002-1.030 [facility] Comment on above: Order Comment: COLLE CTOR TO SPECIFY Result Comment: PLEA SE SEE U44 Performed By: #### L [id number] #### [facility] [address] [place], [address] UR Preservative Normal [facility] Comment on above: Order Comment: COLLE CTOR TO SPECIFY Result Comment: PLEA SE SEE U44 Performed By: #### L [id number] #### [facility] [address] [place], [address] UROBILI Normal Normal [facility] Comment on above: Order Comment: COLLE CTOR TO SPECIFY Result Comment: PLEA SE SEE U44 Performed By: #### L [id number] #### [facility] [address] [place], [address] WBC Normal 0-5 [facility] Comment on above: Order Comment: COLLE CTOR TO SPECIFY Result Comment: CHICO SLATER SEE U44 Performed By: #### L [id number] #### [facility] [address] [place], [address] Urine blood detectionon RBC Ql (U) Negative Negative [facility] Work Phone: RBC Ql (U) 0 SEEN /hpf 0-5 [facility] Work Phone: Urine clarityon 08-09-2022 Clarity (U) Clear Clear [facility] Work Phone: Urine color determinationon 08-09-2022 Color (U) Yellow Yellow [facility] Work Phone: Urine glucose detectionon Glucose Ql (U) Normal mg/dl Normal [facility] Work Phone: Urine leukocyte esterase det ection by dipstickon 08-09-2022 Leukocyte esterase Test strip Ql (U) 25 /ul Negative [facility] Work Phone: Urine pHon 08-09-2022 pH (U) 7.0 [pH] 5.0 - 8.0 [facility] Work Phone: Urine sediment bacteria coun t by microscopy (number/high power field)on 08-09-2022 Bacteria LM.HPF (Urine sed) [#/Area] 0 /[HPF] None Seen [facility] Work Phone: Urine specific gravity measu rementon 08-09-2022 Specific gravity (U) [Rel density] 1.005 1.002-1.030 [facility] Work Phone: Urobilinogen Auto test strip Ql (U)on 08-09-2022 Urobilinogen Ql (U) Normal mg/dl Normal [facility] Work Phone: Vital Signs Date Time Vital Sign Value Performing Clinician Faci lity 08-09-2022 22:41-0500 Diastolic blood pressure 72 mm[Hg] [facility] Work Phone: 08-09-2022 22:41-0500 Heart rate 82 /min [facility] Work Phone: 08-09-2022 22:41-0500 Respiratory rate 18 /min [facility] Work Phone: 08-09-2022 22:41-0500 SaO2% (BldA) [Mass fraction] 98 % [facility] Work Phone: 08-09-2022 22:41-0500 Systolic blood pressure 121 mm[Hg] [facility] Work Phone: 08-09-2022 16:13-0500 Body height 175.26 cm [facility] Work Phone: 08-09-2022 16:13-0500 Body mass index (BMI) [Ratio] 32.5 kg/m2 [facility] Work Phone: 08-09-2022 16:13-0500 Body temperature 95.1 [degF] [facility] Work Phone: 08-09-2022 16:13-0500 Body weight 99.79 kg [facility] Work Phone: Encounters Encounter Date Encounter Type Care Provider Facility Start: 07-19-2024 ambulatory [facility] Start: 07-19-2024 Encounter for genera l adult medical examination without abnormal findings [facility] Start: 08-09-2022 End: 08-10-2022 Emergency department patient visit Hossein Adriana Facility:[facility] Start: 08-09-2022 End: 08-09-2022 Emergency department patient visit [facility] Procedures Date Procedure Procedure Detail Performing Clinician Start: 08-09-2022 CT of abdomen and pe lvis without contrast Plan of Treatment Date Care Activity Detail Author Patient Education Abdominal Pain ED Renal Insufficiency ED Vomiting and Diarrhea ... [facility] Work Phone: Patient referral [facility] Work Phone: Payers Date Payer Category Payer Self-pay [id number] 2022 Unknown [id number] Unknown [id number] Social History Date Type Detail Facility Start: 08-09-2022 Tobacco smoking stat [facility] Unknown if ever smoked [facility] Work Phone: Start: 1995 Sex Assigned At Male [facility] Work Phone: Evaluation note Note Date & Type Note Facility Evaluation note No assessment information availa ble [facility] Work Phone: Hospital Discharge instructions Note Date & Type Note Facility Hospital Discharge instructions Additional Instructions Labs with creatinine of 1.44. CT scan abdomen pelvis noted enteritis findings. Consistent with your vomiting and diarrhea. Continue oral fluids at home. Take medications as prescribed as needed. Follow-up with your doctor. [facility] Work Phone: Chief Complaint and Reason for Visit Chief Complaint ABD PAIN Advance Directives No Advanced Directives Records Found Advance Directive Response Recorded Date/ Time Advance Directives No August 04, 2017 9:19am Living Will No August 09 6:27pm Power of Hand Laster Yes August 09 023 6:27pm Name of Medical Power of Hand Laster daniel betancourt August 09, 2022 6:27pm Summary Purpose Family History No Family History Records FoundNo Family History Records Found Additional Source Comments Goals (unrecognized section and content) Goals may be documented in a n alternate section (unrecognized sect ion and content) No Status Records FoundNo Status Records Found INFORMATION SOURCE (unrecogn ized section and content) DATE CREATED AUTHOR 08/11/2022 [facility] DATE CREATED AUTHOR CLINTON QUINTANA 07/22/[address] [facility] FOR RECORDS PERTAINING TO PATIENTS WHO ARE OR HAVE BEEN ENROLLED IN A CHEMICAL DEPENDENCY/SUBSTANCEABUSE PROGRAM, SOME INFORMATION MAY BE OMITTED. This clinical summary was aggregated from multiple sources. Caution should be exercised in using it in the provision of clinical care. This summary normalizes information from multiple sources, and as a consequence, information in this document may materially change the coding, format and clinical context of patient data. In addition, data may be omitted in some cases. CLINICAL DECISIONS SHOULD BE BASED ON THE PRIMARY CLINICAL RECORDS. [facility] provides no warranty or guarantee of the accuracy or completeness of information in this document.
[2025-05-27] MEDS: Ketorolac 30 MG/ML Syringe IM (20:11)
[2025-05-27 20:16] VITALS: BP 137/88; PULSE 79; RESP 16; TEMP 37.1; O2SAT 100
--- NOTE | 2025-05-27 23:13 | EDS_ITS ---
HPI History of Present Illness Chief Complaint: Dental Narrative Narrative: Patient is a 30-year-old male presenting to the emergency department for 2 years of right lower wisdom tooth pain. Patient states has been coming and going. States he is supposed to follow-up with a dentist in [place] but is not seeing them yet. States that tonight the pain worsened which is why he is here now. He denies any fevers, chills, facial swelling, difficulty swallowing. Denies any shortness of breath. Did not take anything for pain prior to arrival [facility] Medical History Uncontrolled hypertension Acid reflux Home Medications ?Medication ?Instructions ?Recorded ?Last Taken ?Type fluoxetine 10 mg capsule 30 mg PO DAILY 08/09/22 Unkn own History hyoscyamine sulfate 0.125 mg 0.125 mg PO TID PRN abdom inal 08/09/22 Unknown Rx sublingual tablet (Levsin/SL) discomfort #10 tabs omeprazole 20 mg capsule,delayed 20 mg PO DAILY Unknown History release ondansetron 4 mg disintegrating 4 mg PO Q6H PRN nausea and 08/09/22 Unknown Rx tablet vomiting #10 tabs pantoprazole 20 mg tablet,delayed 20 mg PO DAILY 08/09 Unknown History release sucralfate 1 gram tablet 2 g PO DAILY 08/09/22 Unknow n History Allergy/AdvReac Type Severity Reaction Status Date / Time Penicillins Allergy Rash Verified 05/27/25 15:12 Social History Smoking Status: Current every day smoker tobacco type: cigarettes ROS ROS ED ROS Narrative See HPI EXAM Physical Exam Narrative Exam Narrative: Vital signs: Reviewed General: Alert and orientedx3. No acute distress HEENT: Head is normocephalic and atraumatic, sinuses nontender, pupils equal round and reactive. Nares are patent. Oropharynx and throat exams normal. Right lower back wisdom tooth erupting through the gum. There is no dental caries. No gingival swelling or tenderness noted. No swelling of the palate. Tongue is midline, no elevation. Neck: Supple without lymphadenopathy nontender. No erythema or swelling. Cardiovascular: Regular rate and rhythm, no murmurs. No rubs or gallops. Normal S1 and S2 Respiratory: Clear to auscultation bilaterally. No wheezes, rales, rhonchi Abdominal: Soft and nontender. Normal bowel sounds. No guarding or rebound. Nonsurgical abdomen Extremities: No tenderness. No bruising. Normal range of motion. Normal sensation. The rest of the physical exam is unremarkable Const Vital Signs: 05/27/25 15:12 05/27/25 19:12 05/27/25 20:16 Temperature 98.8 F 98.8 F Temperature Source Oral Pulse Rate 66 56 L 79 Respiratory Rate 18 16 Blood Pressure 157/79 H 134/83 H 137/88 H Blood Pressure Mean 105 100 104 Pulse Ox 100 100 100 Oxygen Delivery Method Room Air Room Air MDM MDM MDM Narrative Medical decision making narrative: Patient is a 30-year-old male presenting to the emergency department for dental pain. Patient was seen and examined. Vitals are stable. Patient resting bed comfortably no acute distress. Exam consistent with a wisdom tooth erupting through the gums. There is no evidence of dental caries. No gingival infection/abscess. No periapical abscess. No facial swelling or erythema consistent with a facial abscess. No indication for abx. Patient was offered a dental block and declined. Patient given Toradol for pain control. Given dental clinic follow-up sheet and instructed to follow-up as soon as possible. Patient discharged from the Emergency Department. I do not feel that the patient's evaluation reveals any acute reason for admission at this time. I instructed them to either follow-up with their primary care physician or promptly return to the Emergency Department for reevaluation should symptoms worsen or new symptoms develop. I explained what symptoms would indicate the need to return to the emergency department. Shared decision making was used. The patient voiced understanding of the treatment plan and is agreeable with it. Clinical impression: Dental pain History & Record Review Discussion w/independent historian: Patient Discharge Plan Triage Chief Complaint: Dental ED Provider: Noemi Adams Dx/Rx/DC Orders Clinical Impression: Pain, dental Instructions: ED Dental Pain Prescriptions: No Action sucralfate 1 gram Tablet 2 g PO DAILY pantoprazole 20 mg tablet,delayed release (DR/EC) 20 mg PO DAILY fluoxetine 10 mg capsule 30 mg PO DAILY omeprazole 20 mg capsule,delayed release(DR/EC) 20 mg PO DAILY hyoscyamine sulfate [Levsin/SL] 0.125 mg tablet, sublingual 0.125 mg PO TID PRN (Reason: abdominal discomfort) Qty: 10 0RF ondansetron 4 mg tablet,disintegrating 4 mg PO Q6H PRN (Reason: nausea and vomiting) Qty: 10 0RF Primary Care Provider: Opal Gomez NP Referrals: Opal Gomez NP, PEDIATRIC ANESTHESIOLOGIST-C [Primary Care Provider, [facility]] Activity Restrictions/Additional Instructions: If you have pain at home you can take ibuprofen 600 mg every 8 hours for pain control. You need to follow-up with a dentist soon as possible, please refer to the list I provided for you to have your wisdom teeth pulled. Your evaluation in the Emergency Department did not reveal any acute reason for admission. However, I want to emphasize that you may be early in the course of a disease process or illness even if it is not present. For this reason you should follow- up within 24 hours for reevaluation with either your primary care physician or if necessary back here in the Emergency Department. You should return to the Emergency Department immediately if your symptoms worsen or new symptoms develop. Print Language: Romansh Disposition Disposition: Home, Self Care Discharge Date/Time: 05/27/25 20:31
== END 2025-05-27 20:31 | disposition home or self-care (01) ==
PROVIDERS: Emergency Provider Student in an Organized Health Care Education/Training Program; PCP Nurse Practitioner Family; Visit Provider Student in an Organized Health Care Education/Training Program
DX: K08.89 Other specified disorders of teeth and supporting structures (principal); I10 Essential (primary) hypertension; K21.9 Gastro-esophageal reflux disease without esophagitis
CPT/HCPCS: 96372; 99282